=== PATIENT | male | born 1960 | race Two or more races ===

== ENCOUNTER 2017-05-15 06:30 | Day surgery (SDC) | payer OTHER ==
[2017-05-15] VITALS (15 sets, daily range): BP systolic 100–160; BP diastolic 67–105
[~2017-05-15] VITALS: Ht 172.7 cm; Wt 81.6 kg
[~2017-05-15 06:30] MED LIST: ASPIR 8181 MG ORAL; HYDROCODON-ACE1 EA13 ORAL
[2017-05-15] MEDS ORDERED: LR 1000ml ONE (08:00)
[2017-05-15] MEDS ORDERED: Lidocaine 1% MPF 10mg/ml 5ml ONE (08:00)
[2017-05-15] MEDS ORDERED: Sterile Water Irrig 1000ml IRRIG ONE (08:00)
[2017-05-15] MEDS ORDERED: fentaNYL 100 mcg/2 mL IV ONE (08:00)
[2017-05-15] MEDS ORDERED: NS Irrig 1000ml ONE (08:00)
[2017-05-15] MEDS ORDERED: Midazolam 2mg/2ml Inj ONE (08:00)
[2017-05-15] MEDS ORDERED: EPINEPHrine 1mg/1ml Amp ONE (08:20)
[2017-05-15] MEDS ORDERED: Bupivacaine 0.25% Inj 30ml INJ ONE (08:21)
--- NOTE | 2017-05-15 08:28 | Pre-Procedure Note/Attestation ---
Pre-Procedure Note/Attestation Complete Prior to Procedure Planned Procedure: left Procedure Narrative: knee injection Indications for Procedure Pre-Operative Diagnosis: left knee chondral damage Attestation I attest that I discussed the nature of the procedure; its benefits; risks and complications; and alternatives (and the risks and benefits of such alternatives ), prior to the procedure, with the patient (or the patient's legal food service representative). I attest that, if there was a reasonable possibility of needing a blood transfusion, the patient (or the patient's legal food service representative) was given the [facility] standardized written summary, pursuant to the Pb Taryn Blood Safety Act ([place] Health and Safety Code # 1645, as amended). I attest that I re-evaluated the patient just prior to the surgery and that there has been no change in the patient's H&P, except as documented below: KOKI PEDROZA May 15, 2017 08:28
--- NOTE | 2017-05-15 08:29 | Operative Note - PDOC ---
Operative Note Operative Note Pre-op Diagnosis: left knee chondral damage Procedure: left knee injection stem cells Post-op Diagnosis: same as pre-op plus Operative Findings: consistent w/pre-op dx studies Anesthesia: local Specimen: none Complications: none Condition: stable Estimated Blood Loss: none Implant(s) used?: No KOKI PEDROZA May 15, 2017 08:29
[2017-05-15] MEDS ORDERED: HYDROmorphone 1mg/ml Carpuject SUBQ PRN (08:30)
[2017-05-15] MEDS ORDERED: Norco 5mg/325mg tab ORAL PRN (08:30)
[2017-05-15] MEDS ORDERED: Tylenol #3 tab (300mg/30mg) ORAL PRN (08:30)
[2017-05-15] MEDS ORDERED: D5 1/2NS 1,000 ML IV SCH (08:30)
--- NOTE | 2017-05-15 08:52 | Anethesia Preoperative Eval ---
Anesthesia Pre-op PMH/ROS General Date of Evaluation: May 15, 2017 Time of Evaluation: 08:50 Anesthesiologist: mahendra ASA Score: ASA 1 Mallampati Score Class I : Soft palate, uvula, fauces, pillars visible Class II: Soft palate, uvula, fauces visible Class III: Soft palate, base of uvula visible Class IV: Only hard plate visible Mallampati Classification: Class II Surgeon: j carlos Diagnosis: knee pain Surgical Procedure: left knee stem cell injection Anesthesia History: none Family History: no anesthesia problems Allergies: Coded Allergies: No Known Allergies (Unverified , 02/28/16) Medications: see eMAR Past Medical History Cardiovascular: Denies: HTN, CAD, NE, valve dz, arrhythmia, other Pulmonary: Denies: asthma, COPD, STEVEN, other Gastrointestinal/Genitourinary: Denies: GERD, CRI, ESRD, other Neurologic/Psychiatric: Denies: dementia, CVA, depression/anxiety, TIA, other Endocrine: Denies: DM, hypothyroidism, steroids, other Hematology/Immune: Denies: anemia, DVT, bleeding disorder, other PSxH Narrative: unknown Anesthesia Pre-op Phys. Exam Physician Exam Last Vital Signs Date Time Temp Pulse Resp B/P (MAP) Pulse Ox O2 Delivery O2 Flow Rate FiO2 05/15/17 07:01 98.0 74 18 115/74 99 Room Air Constitutional: NAD Neurologic: CN 2-12 intact Cardiovascular: RRR Respiratory: CTA Gastrointestinal: S/NT/ND Airway Exam Mallampati Score: Class II MO: full Neck: thick TMD: 2fb ROM: full Dentures: no upper, no lower Anesthesia Pre-op A/P Studies Pre-op Studies: EKG - sr Risk Assessment & Plan Plan: mac Status Change Before Surgery: No Pre-Antibiotics Drug: ancef Given Within 1 Hr of Incision: Yes Time Given: 08:15 SANDEEP MCKENNA CRNA May 15, 2017 08:52
--- NOTE | 2017-05-15 09:33 | Immediate Post-Op Evaluation ---
Immediate Post-Op Evalulation Immediate Post-Op Evalulation Date of Evaluation: May 15, 2017 Time of Evaluation: 09:10 IV Fluids: 500 Blood Pressure Systolic: 134 Blood Pressure Diastolic: 100 Pulse Rate: 80 Respiratory Rate: 14 O2 Sat by Pulse Oximetry: 100 Temperature (Fahrenheit): 97.9 Pain Score (1-10): 0 Nausea: No Vomiting: No Complications none Patient Status: awake, reacts, patent Hydration Status: adequate Drug: ancef Given Within 1 Hr of Incision: Yes Time Given: 08:15 SANDEEP MCKENNA CRNA May 15, 2017 09:33
[2017-05-15] MEDS: fentaNYL 100 mcg/2 mL IV PRN ×3 (09:37→10:01)
--- NOTE | 2017-05-15 11:10 | 48 Hour Post Anesthesia Eval ---
Post Anesthesia Evaluation Procedure: left knee stem cell injection Date of Evaluation: May 15, 2017 Time of Evaluation: 11:09 Blood Pressure Systolic: 129 0: 90 Pulse Rate: 78 Respiratory Rate: 14 O2 Sat by Pulse Oximetry: 99 Airway: patent Nausea: No Vomiting: No Hydration Status: adequate Cardiopulmonary Status: stable Mental Status/LOC: patient returned to baseline Follow-up Care/Observations: na Post-Anesthesia Complications: none Follow-up care needed: N/A SANDEEP MCKENNA CRNA May 15, 2017 11:10
--- NOTE | 2017-05-15 15:15 | Operative Note - Dictated ---
DATE OF OPERATION: 05/15/2017 PREOPERATIVE DIAGNOSIS: Left knee posttraumatic chondral damage. POSTOPERATIVE DIAGNOSIS: Left knee posttraumatic chondral damage. PROCEDURE: Left knee bone marrow aspirate injection. SURGEON: Campos Samuels M.D. ANESTHESIA: Light sedation. INDICATION FOR PROCEDURE: The patient is a pleasant gentleman, who has had left knee chondral damage and continued significant discomfort and pain. We elected to undergo a stem cell injection into the left knee. Risks, limitations, expectations, and complication of the procedure were discussed in detail. All questions were addressed. DESCRIPTION OF PROCEDURE: Under sterile conditions, 60 mL of blood was harvested from the right iliac crest. This was spun down to 7 mL of high concentrate plasma with stem cells. Using ultrasound guidance, it was injected into the left knee. The patient was awoken and taken to recovery room with stable vital signs. ESTIMATED BLOOD LOSS: None. COMPLICATION: None. SPECIMENS: None. IMPLANTS: None. Campos Samuels M.D. DR: LUI JOB#: [id number] CC:
== END 2017-05-15 10:50 | disposition home or self-care (01) ==
LOC: SUR 06:30
DX: S89.92XA Unspecified injury of left lower leg, initial encounter (principal); X58.XXXA Exposure to other specified factors, initial encounter; Y93.9 Activity, unspecified; Y92.9 Unspecified place or not applicable
CPT/HCPCS: 38220; J0171; J0690; J2250; J3010; J3490; J7120; 94003; 94150

== ENCOUNTER 2018-01-11 05:14 | Inpatient (IN) | payer OTHER ==
[2018-01-11] VITALS (12 sets, daily range): BP systolic 113–164; BP diastolic 57–100
[~2018-01-11] VITALS: Ht 170.2 cm; Wt 77.6 kg
[2018-01-11] MEDS ORDERED: Pantoprazole Inj IVP ONE (06:00)
[2018-01-11] MEDS ORDERED: Vancomycin 1gm/D5W 275ml IVPB SCH ×2 (06:00)
[2018-01-11] MEDS ORDERED: Pantoprazole Inj ONE (06:14)
[2018-01-11] MEDS ORDERED: Vancomycin 1gm inj IVPB ONE (06:15)
[2018-01-11] MEDS ORDERED: LR 1000ml 1,000 ML IVLG SCH (06:19)
[2018-01-11] MEDS ORDERED: Dexamethasone 4mg/ml vial ONE ×3 (06:24→08:44)
[2018-01-11] MEDS ORDERED: Lidocaine 1% MPF 10mg/ml 5ml ONE (06:24)
[2018-01-11] MEDS ORDERED: Sodium Chloride 10ml vial INJ ONE (06:24)
[2018-01-11] MEDS ORDERED: DiphenhydrAMINE 50mg/ml Inj IVP PRN (06:30)
[2018-01-11] MEDS ORDERED: Metoclopramide 10mg/2ml Inj IVP PRN (06:30)
[2018-01-11] MEDS ORDERED: Norco 5mg/325mg tab ORAL PRN (06:30)
[2018-01-11] MEDS ORDERED: HYDROcodone/Acetamin 7.5/325 tab ORAL PRN ×3 (06:30→12:30)
[2018-01-11] MEDS ORDERED: fentaNYL 100 mcg/2 mL IV PRN (06:30)
[2018-01-11] MEDS ORDERED: Hydromorphone 0.5mg/0.5ml inj IVP PRN (06:30)
[2018-01-11] MEDS ORDERED: LORazepam Inj 2mg/ml 1ml IV PRN (06:30)
[2018-01-11] MEDS ORDERED: Meperidine 50mg/ml Inj(FOR RIGORS ONLY) IVP PRN (06:30)
[2018-01-11] MEDS ORDERED: Labetalol 5mg/ml 20ml vial IV PRN (06:30)
[2018-01-11] MEDS ORDERED: Midazolam 2mg/2ml Inj IVP PRN (06:30)
[2018-01-11] MEDS ORDERED: oxyCODONE HCL/Acetaminophen 5/325mg ORAL PRN (06:30)
[2018-01-11] MEDS ORDERED: Ketorolac 30mg Inj IV PRN ×2 (06:30)
[2018-01-11] MEDS ORDERED: Atropine Sulfate 0.4mg/ml inj IVP PRN (06:30)
[2018-01-11] MEDS ORDERED: Acetaminophen (Non formulary) 100 ML IV ONE (06:30)
--- NOTE | 2018-01-11 06:38 | Anethesia Preoperative Eval ---
Anesthesia Pre-op PMH/ROS General Date of Evaluation: Jan 11, 2018 Anesthesiologist: Barron ASA Score: ASA 2 Mallampati Score Class I : Soft palate, uvula, fauces, pillars visible Class II: Soft palate, uvula, fauces visible Class III: Soft palate, base of uvula visible Class IV: Only hard plate visible Mallampati Classification: Class II Surgeon: Victoriano Diagnosis: Neck Pain Surgical Procedure: PLIF C5-6, C6-7 Family History: no anesthesia problems Allergies: Coded Allergies: No Known Allergies (Unverified , 02/28/16) Medications: see eMAR Past Medical History Cardiovascular: Reports: HTN, other - HL PSxH Narrative: L Knee Sx X2, Cervical Fusion Anesthesia Pre-op Phys. Exam Physician Exam Last Vital Signs Date Time Temp Pulse Resp B/P (MAP) Pulse Ox O2 Delivery O2 Flow Rate FiO2 01/11/18 05:56 97.7 83 20 128/86 (100) 99 97.7 01/11/18 05:42 Room Air Constitutional: NAD Neurologic: CN 2-12 intact Cardiovascular: RRR Respiratory: CTA Gastrointestinal: S/NT/ND Airway Exam Mallampati Score: Class II MO: full ROM: limited Teeth: intact Anesthesia Pre-op A/P Risk Assessment & Plan Assessment: ASA 2 Plan: GA, SED, GlideScope Go Status Change Before Surgery: No Pre-Antibiotics Dru Gram Vancomycin, 80 mg Gentamicin IV Given Within 1 Hr of Incision: Yes Time Given: 08:01 Damaso Mart MD Jan 11, 2018 06:38
[2018-01-11] MEDS ORDERED: Lidocaine 1% Plain 30 ml INJ ONE ×2 (07:01→10:01)
[2018-01-11] MEDS ORDERED: fentaNYL 100 mcg/2 mL IV ONE ×3 (07:07→11:47)
[2018-01-11] MEDS ORDERED: Thrombin 5000 units TOPIC ONE ×2 (07:26→10:02)
[2018-01-11] MEDS ORDERED: Heparin 1000 units/ml 1ml Vial ONE (07:26)
[2018-01-11] MEDS ORDERED: Thrombin 5000 units spray kit TOPIC ONE (07:26)
[2018-01-11] MEDS ORDERED: Bacitracin Oint 15gm Tube TOPIC ONE (07:26)
[2018-01-11] MEDS ORDERED: EPINEPHrine 1mg/1ml Amp ONE (07:26)
[2018-01-11] MEDS ORDERED: Bupivacaine 0.5% Inj 30 ml vial INJ ONE (07:27)
[2018-01-11] MEDS ORDERED: Gelfoam Absorbable 1gm powder pkt TOPIC ONE (07:27)
[2018-01-11] MEDS ORDERED: Gelfoam Size TOPIC ONE ×2 (07:27→10:02)
[2018-01-11] MEDS ORDERED: Bacitracin 50000 Units Vial ONE (07:27)
[2018-01-11] MEDS ORDERED: NS Irrig 1000ml ONE (08:00)
[2018-01-11] MEDS ORDERED: Sterile Water Irrig 1000ml IRRIG ONE (08:00)
[2018-01-11] MEDS ORDERED: LR 1000ml ONE (08:00)
[2018-01-11] MEDS ORDERED: Phenylephrine 10mg/ml Vial ONE (08:12)
[2018-01-11] MEDS ORDERED: Zemuron 50mg/5ml Inj IV ONE (10:25)
[2018-01-11] MEDS ORDERED: Glycopyrrolate 0.2mg/ml 1ml Vial ONE (11:34)
[2018-01-11] MEDS ORDERED: Naloxone 0.4mg/ml Inj ONE (11:45)
--- NOTE | 2018-01-11 12:10 | Pre-Procedure Note/Attestation ---
Pre-Procedure Note/Attestation Complete Prior to Procedure Planned Procedure: bilateral Procedure Narrative: Posterior cervical laminoforaminotomies at bilateral C5-6 and Right C6-7 wit lateral mass fixation and posterolateral arthrodesis at C5-6, with use allograft , autograft and iliac crest bone marrow aspirate. Attestation I attest that I discussed the nature of the procedure; its benefits; risks and complications; and alternatives (and the risks and benefits of such alternatives ), prior to the procedure, with the patient (or the patient's legal car sales representative). I attest that, if there was a reasonable possibility of needing a blood transfusion, the patient (or the patient's legal car sales representative) was given the [place] [facility] standardized written summary, pursuant to the Pb Taryn Blood Safety Act ([place] Health and Safety Code # 1645, as amended). I attest that I re-evaluated the patient just prior to the surgery and that there has been no change in the patient's H&P, except as documented below: Roland Pastrana MD Jan 11, 2018 12:09
--- NOTE | 2018-01-11 12:18 | Immediate Post-Op Evaluation ---
Immediate Post-Op Evalulation Immediate Post-Op Evalulation Procedure: PLIF C5-6, C6-7 Date of Evaluation: Jan 11, 2018 Time of Evaluation: 12:17 IV Fluids: 1200 LR Blood Products: 0 Estimated Blood Loss: 30 Urinary Output: 0 Blood Pressure Systolic: 149 Blood Pressure Diastolic: 100 Pulse Rate: 86 Respiratory Rate: 16 O2 Sat by Pulse Oximetry: 100 Temperature (Fahrenheit): 97.6 Pain Score (1-10): 3 Nausea: No Vomiting: No Complications 0 Patient Status: awake, reacts, patent, extubated, none Hydration Status: adequate Dru Gram Vancomycin, 80 mg Gentamicin IV Given Within 1 Hr of Incision: Yes Time Given: 08:01 Damaso Mart MD Jan 11, 2018 12:18
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
[2018-01-11] MEDS ORDERED: Milk of Magnesia 30ml Ud ORAL PRN (12:30)
[2018-01-11] MEDS ORDERED: Cyclobenzaprine 10mg Tab ORAL PRN (12:30)
[2018-01-11] MEDS ORDERED: Naloxone 0.4mg/ml Inj IVP PRN (12:30)
[2018-01-11] MEDS ORDERED: HYDROmorphone 1mg/ml Carpuject IVP PRN (12:30)
[2018-01-11] MEDS ORDERED: Rate Change PCA 1 Each MISC PRN (12:30)
[2018-01-11] MEDS ORDERED: PCA Education Pamphlet MISC ONE (12:30)
[2018-01-11] MEDS ORDERED: PCA HYDROmorphone 1mg/ml 30 ML IV PRN (12:30)
--- NOTE | 2018-01-11 12:53 | General Progress Note ---
Progress Note Progress Note Neurosurgery Post-op S/ Comfortable no arm pain. Incisional pain tolerable. O/VS: Last 24 Hour Vital Signs Date Time Temp Pulse Resp B/P (MAP) Pulse Ox O2 Delivery O2 Flow Rate FiO2 01/11/18 12:27 86 18 164/100 100 Simple Mask 6 01/11/18 12:21 88 14 147/87 100 Simple Mask 6 01/11/18 12:18 207.7 86 16 100 01/11/18 12:16 97.4 82 16 149/100 100 Simple Mask 6 97.4 01/11/18 05:56 97.7 83 20 128/86 (100) 99 97.7 01/11/18 05:42 Room Air Alert and oriented x 4 Moves all extremities well. Improved movement and strength of the right upper extremity. Incisions are dry. doing well admit family updated HOST/HOSTESS Roland Pastrana MD Jan 11, 2018 12:53
[2018-01-11] MEDS ORDERED: PCA HYDROmorphone 1mg/ml 30 ML IV ONE (13:13)
[2018-01-11] MEDS: NS w/KCl 20mEq 1,000 ML IV SCH (15:50)
[2018-01-11] MEDS: Cephalexin 500mg cap ORAL SCH (15:51)
[2018-01-11] MEDS: Acetaminophen (Non formulary) 100 ML IV SCH (15:51)
[2018-01-11] MEDS: Docusate 100mg cap ORAL SCH (17:53)
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
--- NOTE | 2018-01-11 18:46 | Diagnostic Imaging Report ---
Indication: Neck pain Technique: 4 fluoroscopic images from spinal surgery submitted for archival the PACS. Surgeon: Roland Pastrana Total fluoroscopy time: 15.8 seconds Total fluoroscopy dose: 2.46 mGy Comparison: None Findings: Fluoroscopic images from spinal surgery submitted for archival the PACS. Initial image demonstrates an indwelling endotracheal tube. Subsequent lateral image demonstrates surgical clips overlying the C4 vertebral body and the C5-C6 disc space; existing surgical material noted at C5-C6. Subsequent images demonstrate posterior instrumented fusion at C5-C6 with paired screws and posterior rods. Impression: Fluoroscopic images from spinal surgery. Please see operative report.
[2018-01-11] MEDS ORDERED: PCA shift volume MISC SCH (19:00)
[2018-01-11] MEDS ORDERED: Vancomycin 1 GM in D5W 275 ML IV SCH (21:00)
[2018-01-12] VITALS: BP 122/63
[2018-01-12] MEDS: NS w/KCl 20mEq 1,000 ML IV SCH (01:02)
[2018-01-12 04:00] VITALS: BP 112/65
[2018-01-12] MEDS: Acetaminophen (Non formulary) 100 ML IV SCH (05:01)
[2018-01-12] MEDS: Cephalexin 500mg cap ORAL SCH (05:01)
[2018-01-12 06:52] LABS: ANION GAP 7 mmol/L (5-15); BLOOD UREA NITROGEN 13 mg/dL (7-18); CALCIUM 8.9 MG/DL (8.5-10.1); CARBON DIOXIDE 31 MMOL/L (21-32); CHLORIDE 105 MMOL/L (98-107); CREATININE 0.9 MG/DL (0.55-1.30); POTASSIUM 4.7 MMOL/L (3.5-5.1); SODIUM 142 MMOL/L (136-145)
[2018-01-12 08:00] VITALS: BP 122/79
[2018-01-12] MEDS: Docusate 100mg cap ORAL SCH (08:51)
--- NOTE | 2018-01-12 08:54 | General Progress Note ---
Progress Note Progress Note Neurosurgery POD #1 S/ doing very well. Upper extremity pain resolved. OFF KITCHEN CHEF No narcotics this am. Ambulated . Voided. Tolerating po's O/ VS Last 24 Hour Vital Signs Date Time Temp Pulse Resp B/P (MAP) Pulse Ox O2 Delivery O2 Flow Rate FiO2 01/12/18 08:00 98.5 83 18 122/79 (93) 95 98.5 01/12/18 04:00 18 01/12/18 04:00 98.3 108 18 112/65 (81) 96 98.3 01/12/18 00:00 98.6 99 18 122/63 (82) 95 98.6 01/12/18 00:00 18 01/11/18 21:00 Room Air 01/11/18 20:00 18 01/11/18 20:00 98.8 101 18 116/57 (76) 94 98.8 01/11/18 16:21 97.2 01/11/18 16:00 96.9 104 19 113/81 (92) 96 96.9 01/11/18 16:00 20 01/11/18 15:51 97.2 01/11/18 13:55 97.2 99 20 125/90 (102) 99 97.2 01/11/18 13:55 20 01/11/18 13:51 98.0 01/11/18 13:51 98.0 01/11/18 13:50 20 01/11/18 13:35 98.0 94 15 117/82 100 Nasal Cannula 3 98.0 01/11/18 13:35 18 01/11/18 13:26 98.3 01/11/18 13:26 87 15 132/92 100 Nasal Cannula 3 01/11/18 13:21 14 01/11/18 13:21 98.3 01/11/18 13:10 87 15 136/93 100 Nasal Cannula 3 01/11/18 12:55 86 14 151/100 100 Nasal Cannula 3 01/11/18 12:40 90 17 160/98 100 Nasal Cannula 3 01/11/18 12:27 86 18 164/100 100 Simple Mask 6 01/11/18 12:21 88 14 147/87 100 Simple Mask 6 01/11/18 12:18 207.7 86 16 100 01/11/18 12:16 97.4 82 16 149/100 100 Simple Mask 6 97.4 Alert and oriented x 4. at bedside Wound dressing changed Wound clean dry and intact Improved strength in the right upper extremity biceps and triceps Normal sensation labs Laboratory Tests Test 01/12/18 06:15 Sodium Level 142 MMOL/L (136-145) Potassium Level 4.7 MMOL/L (3.5-5.1) Chloride Level 105 MMOL/L (98-107) Carbon Dioxide Level 31 MMOL/L (21-32) Anion Gap 7 mmol/L (5-15) Blood Urea Nitrogen 13 mg/dL (7-18) Creatinine 0.9 MG/DL (0.55-1.30) Estimat Glomerular Filtration Rate > 60 mL/min (>60) Glucose Level 116 MG/DL (74-106) H Calcium Level 8.9 MG/DL (8.5-10.1) Magnesium Level 1.8 MG/DL (1.8-2.4) doing well d/c planning Roland Pastrana MD Jan 12, 2018 08:54
[2018-01-12 09:00] VITALS: BP 122/79
--- NOTE | 2018-01-12 09:01 | 48 Hour Post Anesthesia Eval ---
Post Anesthesia Evaluation Procedure: PLIF C5-6, C6-7 Date of Evaluation: Jan 12, 2018 Time of Evaluation: 14:00 Blood Pressure Systolic: 122 0: 79 Pulse Rate: 83 Respiratory Rate: 18 Temperature (Fahrenheit): 98.5 O2 Sat by Pulse Oximetry: 95 Airway: patent Nausea: No Vomiting: No Pain Intensity: 3 Hydration Status: adequate Cardiopulmonary Status: Stable Mental Status/LOC: patient returned to baseline Follow-up Care/Observations: As per surgery Post-Anesthesia Complications: No anesthetic complication Follow-up care needed: N/A Pb Carr MD Jan 12, 2018 09:00
[2018-01-12] MEDS ORDERED: Tubing IV Secondary IV ONE (11:34)
[2018-01-12] MEDS ORDERED: D5NS 1000ml IV ONE (11:34)
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
== END 2018-01-12 11:35 | disposition home or self-care (01) | DRG 472 ==
LOC: SDSOVERFLO 05:14 → 3E 13:34
PROC: 0RG1071 Fusion of Cervical Vertebral Joint with Autologous Tissue Substitute, Posterior Approach, Posterior Column, Open Approach (ICD-10-PCS; principal; 2018-01-11 07:30)
PROC: 01N10ZZ Release Cervical Nerve, Open Approach (ICD-10-PCS; principal; 2018-01-11 07:30)
PROC: 07DR3ZZ Extraction of Iliac Bone Marrow, Percutaneous Approach (ICD-10-PCS; principal; 2018-01-11 07:30)
DX: M50.122 Cervical disc disorder at C5-C6 level with radiculopathy (principal); M96.0 Pseudarthrosis after fusion or arthrodesis; V89.2XXS Person injured in unspecified motor-vehicle accident, traffic, sequela; Y83.8 Other surgical procedures as the cause of abnormal reaction of the patient, or of later complication, without mention of misadventure at the time of the procedure; S49.81XS Other specified injuries of right shoulder and upper arm, sequela; M25.50 Pain in unspecified joint
CPT/HCPCS: 36415; 72040; 76001; 80048; 82962; 83735; 86850; 86900; 86901; 87081; 94003; 94150; J2370; J2405